=== PATIENT | female | born 1975 | race Caucasian/White ===

== ENCOUNTER 2019-12-24 14:56 | Outpatient (CLI) | payer OTHER, SELFPAY ==
--- NOTE | ~2019-12-24 | MR_ITS ---
EXAMINATION: MR cervical spine wo/w con DATE: 12/24/2019 17:27 INDICATION: Syringomyelia and syringobulbia. TECHNIQUE: Magnetic resonance imaging (MRI) of the cervical spine was performed without and with 13 m L MultiHance intravenous contrast. Sequences included sagittal and axial T2-weighted FSE, sagittal ST IR FSE, and sagittal and axial T1-weighted FSE. Postcontrast sequences included sagittal and axial T1 -weighted FS FSE. COMPARISON: Cervical spine MRI 07/14/2012 FINDINGS: There is kyphosis of cervical spine. Vertebral body heights are normal. There is moderately decreased disc height at C3-C4, C5-C6 C6-C7, and C7-T1. The spinal cord signal intensity is normal. The following disc levels are specifically discussed: C2-C3: There is a central protrusion. There is mild left uncovertebral joint osteoarthritis. There is severe left facet joint osteoarthritis. There is mild left neural foraminal stenosis. There is no ce ntral canal stenosis. C3-C4: The disc is bulging. There is severe bilateral uncovertebral joint osteoarthritis. There is mo derate and severe left facet joint osteoarthritis. There is mild bilateral neural foraminal stenosis. There is mild central canal stenosis. C4-C5: The disc does not extend beyond the endplate margin. There is mild left uncovertebral joint os teoarthritis. There is mild left facet joint osteoarthritis. There is mild left neural foraminal sten osis. There is no central canal stenosis. C5-C6: The disc is bulging. There is moderate right and severe left uncovertebral joint osteoarthriti s. There is mild bilateral facet joint osteoarthritis. There is mild left neural foraminal stenosis. There is mild central canal stenosis. C6-C7: The disc is bulging. There is moderate bilateral uncovertebral joint osteoarthritis. There is no facet joint osteoarthritis. There is mild right neural foraminal stenosis. There is mild central c anal stenosis. C7-T1: The disc is bulging. There is severe bilateral uncovertebral joint osteoarthritis. There is mi ld bilateral facet joint osteoarthritis. There is mild bilateral neural foraminal stenosis. There is mild central canal stenosis. IMPRESSION: 1. No syringomyelia. 2. Moderate cervical spondylosis. Reviewed, dictated and finalized at location A. IOPE PLAYER
--- NOTE | ~2019-12-24 | MR_ITS ---
EXAMINATION: MR thoracic spine wo/w con EXAM DATE: 12/24/2019 17:27 INDICATION: Single hydromyelia. TECHNIQUE: Multi-sequential, multiplanar MR images of the thoracic spine were obtained without contra st. Sagittal T1, T2, T2 fat saturation, axial T2 weighted images reviewed. Axial T1 weighted sequenc e. Patient was then injected with 13 mL Multihance intravenous contrast and reimaged. Postcontrast axial and sagittal T1-weighted fat saturation sequences were obtained. Comparison is made to prior ex amination from 03/01/2014, 07/14/2012. FINDINGS: The mid thoracic spinal cord central canal is again perceptible, measuring up to about 1.4 mm (was about 1.0 mm on previous examination. This is minimally dilated, but there is no other cord s ignal abnormality, or abnormal enhancement to suggest any underlying mass. The thoracic spinal canal and neural foramen widely patent. The vertebral bodies are aligned in the AP dimension. Vertebral bod y and disc heights are well-maintained. Mild thoracic facet arthropathy. Paraspinal soft tissue is un remarkable. There are no areas of abnormal enhancement on the post contrast images. IMPRESSION: 1. Minimal mid thoracic syringohydromyelia, slight increase compared to 2013, appears similar to exam from 2011. 2. Mild facet arthropathy. Reviewed, dictated and finalized at location A. RAM DIRECTOR/TRAFFIC DIRECTOR IMPRESSION: 1. Minimal mid thoracic syringohydromyelia, slight increase compared to 2013, a ppears similar to exam from 2011. 2. Mild facet arthropathy.
[2019-12-24 16:13] LABS: Blood Urea Nitrogen 7 mg/dL (8-26); Estimated Glomerular Filt Rate > 60
== END 2019-12-24 14:57 | disposition home or self-care (01) ==
LOC: ANHIMG 15:03
PROVIDERS: PCP Physician Assistant; Visit Provider Psychiatry & Neurology Neurology
DX: G95.0 Syringomyelia and syringobulbia (principal); M47.892 Other spondylosis, cervical region
CPT/HCPCS: 72156; 72157; A9577

== ENCOUNTER 2020-11-17 14:57 | Outpatient (CLI) | payer OTHER, SELFPAY ==
--- NOTE | ~2020-11-17 | MR_ITS ---
EXAMINATION: MR cervical spine wo con DATE: 11/17/2020 16:15 INDICATION: Paresthesias of skin. TECHNIQUE: Magnetic resonance imaging (MRI) of the cervical spine was performed without intravenous c ontrast. Sequences included sagittal T2-weighted FSE, sagittal STIR FSE, sagittal T1-weighted FSE, ax ial MERGE, and axial T2-weighted FSE. COMPARISON: None FINDINGS: There is kyphosis of cervical spine. Vertebral body heights are normal. There is moderately decreased disc height at C3-C4, C5-C6, C6-C7, and C7-T1. The spinal cord signal intensity is normal. The following disc levels are specifically discussed: C2-C3: There is a left central protrusion. There is mild right and severe left uncovertebral joint os teoarthritis. There is severe left facet joint osteoarthritis. There is mild left neural foraminal st enosis. There is no central canal stenosis. C3-C4: The disc is bulging. There is severe bilateral uncovertebral joint osteoarthritis. There is mo derate right and severe left facet joint osteoarthritis. There is mild bilateral neural foraminal andriy nosis. There is mild central canal stenosis. C4-C5: The disc does not extend beyond the endplate margin. There is no uncovertebral joint osteoarth ritis. There is mild bilateral facet joint osteoarthritis. There is no neural foraminal stenosis. The re is no central canal stenosis. C5-C6: The disc does not extend beyond the endplate margin. There is moderate and severe left uncover tebral joint osteoarthritis. There is no facet joint osteoarthritis. There is mild left neural forami nal stenosis. There is mild central canal stenosis. C6-C7: The disc is bulging. There is moderate bilateral uncovertebral joint osteoarthritis. There is no facet joint osteoarthritis. There is mild right neural foraminal stenosis. There is mild central c anal stenosis. C7-T1: The disc is bulging. There is mild right and severe left uncovertebral joint osteoarthritis. T here is no facet joint osteoarthritis. There is mild bilateral neural foraminal stenosis. There is mi ld central canal stenosis. IMPRESSION: 1. Moderate cervical spondylosis, stable from 12/24/2019. Reviewed, dictated and finalized at location A. L RECORDS MANAGER
--- NOTE | ~2020-11-17 | MR_ITS ---
EXAMINATION: MR thoracic spine wo con DATE: 11/17/2020 16:16 INDICATION: Paresthesias of skin. Syringomyelia and single mobile. TECHNIQUE: Magnetic resonance imaging (MRI) of the thoracic spine was performed without intravenous c ontrast. Sagittal localizer T1-weighted FSE of the cervicothoracic spine was obtained. Thoracic spine sequences included sagittal T2-weighted FSE, sagittal T1-weighted SE, Sagittal T2-weighted FS FSE, a nd axial T2-weighted FSE. COMPARISON: 12/24/2019 FINDINGS: 15 degree levoscoliosis measured between T2 and T9.Sagittal alignment is normal.Vertebral body height s are normal. Likely physiologic minimal anterior wedging at T12 with Schmorl's nodes along the super ior and inferior endplates. Normal marrow signal.Mild disc height loss throughout the majority of the thoracic spine. There are small disc protrusions at T3-T4,T5-T6 and T9-T10 which does not significan tly narrow the central canal. Multilevel mild to moderate bilateral thoracic facet osteoarthritis wit h no significant neural foraminal stenosis. Again seen a syringohydromyelia in the midthoracic cord w ith mild dilation of the central canal which is minimally increased since the prior study , previous ly 1.4 mm, currently up to 1.5 mm at T8-T9. IMPRESSION: 1. Mild progression in mild thoracic syringohydromyelia which now extends further craniocaudally and with slight increase in degree of dilation now measuring 1.5 mm. 2. 15 degree lumbar levoscoliosis with mild spondylosis. Reviewed, dictated and finalized at location A. PINCHER IMPRESSION: 1. Mild progression in mild thoracic syringohydromyelia which now extends furth er craniocaudally and with slight increase in degree of dilation now measuring 1.5 mm. 2. 15 degree lumbar levoscoliosis with mild spondylosis.
== END 2020-11-17 14:58 | disposition home or self-care (01) ==
LOC: ANHIMG 15:00
PROVIDERS: PCP Physician Assistant; Visit Provider Psychiatry & Neurology Neurology
DX: R20.2 Paresthesia of skin (principal); M47.896 Other spondylosis, lumbar region; M47.892 Other spondylosis, cervical region
CPT/HCPCS: 72141; 72146

== ENCOUNTER 2021-02-02 09:54 | Outpatient (CLI) | payer MEDICAID, SELFPAY ==
--- NOTE | 2021-02-02 11:30 | NEURO_ITS ---
Impression: # Complains of left hand numbness; known to have syringomyelia. # Left moderate Carpal Tunnel Syndrome. # No ulnar neuropathy. # Normal needle/EMG exam. # Clinical correlation recommended. Nerve Conduction Studies Anti Sensory Summary Table Stim Site NR Peak (ms) P-T Amp (?V) Site1 Site2 Delta-P (ms) Dist (cm) Sean (m/s) Left Median Anti Sensory (2-3nd Digit) NO RESPONSE Wrist NR Wrist 2-3nd Digit 14.0 Wrist NR Wrist 2-3nd Digit 14.0 Right Median Anti Sensory (2-3nd Digit) Wrist 3.1 39.0 Wrist 2-3nd Digit 3.1 14.0 45 Wrist 3.1 54.4 Wrist 2-3nd Digit 3.1 14.0 45 Left Radial Anti Sensory (Base 1st Digit) Wrist 1.7 43.6 Wrist Base 1st Digit 1.7 0.0 Right Radial Anti Sensory (Base 1st Digit) Wrist 2.1 28.1 Wrist Base 1st Digit 2.1 0.0 Left Ulnar Anti Sensory (5th Digit) Wrist 2.2 47.0 Wrist 5th Digit 2.2 14.0 64 Right Ulnar Anti Sensory (5th Digit) Wrist 2.1 41.5 Wrist 5th Digit 2.1 14.0 67 Motor Summary Table Stim Site NR Onset (ms) O-P Amp (mV) Site1 Site2 Delta-0 (ms) Dist (cm) Sean (m/s) Left Median Motor (Abd Poll Brev) Wrist 5.7 4.7 Elbow Wrist 4.8 28.0 58 Elbow 10.5 5.5 Right Median Motor (Abd Poll Brev) Wrist 3.0 4.0 Elbow Wrist 4.2 25.0 60 Elbow 7.2 6.0 Left Ulnar Motor (Abd Dig Minimi) Wrist 2.4 6.5 A Elbow Wrist 4.6 29.0 63 A Elbow 7.0 5.4 Right Ulnar Motor (Abd Dig Minimi) Wrist 2.4 6.5 A Elbow Wrist 4.4 27.0 61 A Elbow 6.8 5.8 F Wave Studies NR F-Lat (ms) L-R F-Lat (ms) Left Median (Mrkrs) (Abd Poll Brev) 25.56 0.88 Right Median (Mrkrs) (Abd Poll Brev) 24.68 0.88 Left Ulnar (Mrkrs) (Abd Dig Min) 24.69 0.63 Right Ulnar (Mrkrs) (Abd Dig Min) 24.06 0.63 EMG Side Muscle Nerve Root Ins Act Fibs Amp Dur Recrt Comment Right 1stDorInt Ulnar C8-T1 Nml Nml Nml Nml Nml Right Ext Indicis Radial (Post Int) C7-8 Nml Nml Nml Nml Nml Right Ext Digitorum Radial (Post Int) C7-8 Nml Nml Nml Nml Nml Right BrachioRad Radial C5-6 Nml Nml Nml Nml Nml Right PronatorTeres Median C6-7 Nml Nml Nml Nml Nml Right Abd Poll Brev Median C8-T1 Nml Nml Nml Nml Nml Left 1stDorInt Ulnar C8-T1 Nml Nml Nml Nml Nml Left Ext Indicis Radial (Post Int) C7-8 Nml Nml Nml Nml Nml Left Ext Digitorum Radial (Post Int) C7-8 Nml Nml Nml Nml Nml Left BrachioRad Radial C5-6 Nml Nml Nml Nml Nml Left PronatorTeres Median C6-7 Nml Nml Nml Nml Nml Left Abd Poll Brev Median C8-T1 Nml Nml Nml Nml Nml MTDD
== END 2021-02-02 09:55 | disposition home or self-care (01) ==
PROVIDERS: PCP Physician Assistant; Visit Provider Psychiatry & Neurology Neurology
DX: G56.02 Carpal tunnel syndrome, left upper limb (principal); R20.2 Paresthesia of skin
CPT/HCPCS: 95886; 95911

== ENCOUNTER 2022-09-14 17:53 | Emergency (ER) | payer OTHER, SELFPAY ==
--- NOTE | 2022-09-14 18:03 | ED.DIZZY ---
HPI - Dizziness General Chief Complaint: Dizziness Stated Complaint: dizziness Time Seen by Provider: 09/14/22 18:40 Source: patient Mode of arrival: ambulatory Limitations: no limitations History of Present Illness HPI Narrative: Ms. Sanchez is a 46-year-old female patient presenting to clinic today with complaints of dizziness, left ear pain, and wheezing. She reports she does have a history of asthma. She denies any fever or chills. She has a nonproductive cough currently. States that she has some mild shortness of breath and some left-sided neck pain over the eustachian tube. Related Data Home Medications Medication Instructions Recorded Confirmed albuterol sulfate 90 mcg/actuation inhalation 09/14/22 aerosol inhaler baclofen 10 mg tablet mg 09/14/22 cetirizine 10 mg tablet mg 09/14/22 cholecalciferol (vitamin D3) 50 09/14/22 mcg (2,000 unit) capsule ezetimibe 10 mg tablet mg 09/14/22 fluoxetine 20 mg capsule mg 09/14/22 gabapentin 600 mg tablet mg 09/14/22 hydrocodone 10 mg-acetaminophen tablet 09/14/22 325 mg tablet hydroxyzine pamoate 25 mg capsule mg 09/14/22 norethindrone 1 mg-ethinyl tablet 09/14/22 estradiol 20 mcg (24)-iron 75 mg (4) tablet (Blisovi 24 Fe) omeprazole 20 mg capsule,delayed mg 09/14/22 release trazodone 50 mg tablet mg 09/14/22 Allergies Allergy/AdvReac Type Severity Reaction Status Date / Time No Known Allergies Allergy Verified 09/14/22 18:39 Review of Systems Review of Systems: Pertinent positives per HPI. Patient denies any fever, chills, rash, headache, visual changes, dizziness, cough, runny nose, sore throat, shortness of breath, chest pain, palpitations, nausea, vomiting, diarrhea, constipation, abdominal pain, or any urinary issues. PMFSH Comments At the time of my signature, I reviewed and agree with the nursing past medical, surgical, social, and family history. There is no relevant family history pertinent to the patient complaint. Exam Narrative: General: Well-developed, well nourished, in no apparent distress Head: Normocephalic, atraumatic Eyes: Pupils equally round and reactive to light bilaterally, EOM intact, sclera and conjunctive clear, no discharge, lids normal Ears: Right TMs intact and clear, left TM intact, bulging, and red, tenderness to palpation over the the left eustachian tube,ear canals clear, no drainage, grossly hearing normal. Nose: Nares patent, clear nasal discharge, mild inflammation, no sinus tenderness. Mouth: Oropharynx without lesions or masses, good dentition, MMM. Neck: Supple, trachea midline, no enlargement of anterior or posterior cervical nodes, no thyroid masses or goiter palpable. Cardio: Regular rate and rhythm, s1 and s2 normal, no murmur appreciated. Resp: faint expiratory wheezing throughout lung cash, no rhonchi, rales, or rubs Course Course Emergency Course: Portions of this record may have been created with voice recognition software. Level of Care: Express Care Visit Vital Signs Vital signs: Vital Signs Temperature 37.2 C 09/14/22 18:38 Pulse Rate 70 09/14/22 18:38 Respiratory Rate 16 09/14/22 18:38 Blood Pressure 147/91 H 09/14/22 18:38 Pulse Oximetry 99 09/14/22 18:38 Oxygen Delivery Room Air 09/14/22 18:38 Temperature 37.2 C 09/14/22 18:38 Pulse Rate 70 09/14/22 18:38 Respiratory Rate 16 09/14/22 18:38 Blood Pressure 147/91 H 09/14/22 18:38 Pulse Oximetry 99 09/14/22 18:38 Oxygen Delivery Room Air 09/14/22 18:38 Vital signs reviewed MDM - Dizziness MDM Narrative Medical decision making narrative: At the time of visit patient is resting comfortably on the exam table. I suspect that the patient has left otitis media with bronchitis. Will give prescription for some prednisone and amoxicillin. Supportive measures were discussed with the patient she voiced understanding of discharge instructions and agrees to treatment plan.
[2022-09-14 18:38] VITALS: BP 147/91; PULSE 70; RESP 16; TEMP 37.2; O2SAT 99
[2022-09-14 18:54] VITALS: BP 147/91; PULSE 70; RESP 16; TEMP 37.2; O2SAT 99
== END 2022-09-14 19:02 | disposition home or self-care (01) ==
PROVIDERS: Emergency Provider Nurse Practitioner Family
DX: H66.92 Otitis media, unspecified, left ear (principal); J40 Bronchitis, not specified as acute or chronic; E78.00 Pure hypercholesterolemia, unspecified; J45.909 Unspecified asthma, uncomplicated; K21.9 Gastro-esophageal reflux disease without esophagitis; G95.0 Syringomyelia and syringobulbia
CPT/HCPCS: 99203; G0463

== ENCOUNTER 2023-04-06 18:53 | Emergency (ER) | payer OTHER, SELFPAY ==
[2023-04-06 19:03] VITALS: BP 144/89; PULSE 68; RESP 16; TEMP 37.4; O2SAT 99
--- NOTE | 2023-04-06 19:58 | ED.EAR ---
HPI - Ear Problem General Chief complaint: Ear Stated complaint: Ear Irritation Time Seen by Provider: 04/06/23 19:58 Source: patient and RN notes reviewed Mode of arrival: ambulatory Limitations: no limitations History of Present Illness HPI Narrative: 47-year-old female presents concern for left ear pain. She reports she has had an ear infection in the past. She reports she has had a headache recently and she has allergy symptoms. She denies fever, drainage from the ears MD Complaint: ear pain Related Data Home Medications Medication Instructions Recorded Confirmed albuterol sulfate 90 mcg/actuation 90 mcg inhalation Q4-5H PRN sob 09/14/22 04/06/23 aerosol inhaler baclofen 10 mg tablet 10 mg PO DAILY 09/14/22 04/06/23 cetirizine 10 mg tablet 10 mg PO DAILY 09/14/22 04/06/23 cholecalciferol (vitamin D3) 50 50 mcg PO DAILY 09/14/22 04/06/23 mcg (2,000 unit) capsule ezetimibe 10 mg tablet 10 mg PO DAILY 09/14/22 04/06/23 fluoxetine 20 mg capsule 20 mg PO DAILY 09/14/22 04/06/23 gabapentin 600 mg tablet 600 mg PO DAILY 09/14/22 04/06/23 hydrocodone 10 mg-acetaminophen 1 tablet PO DAILY PRN Pain 09/14/22 04/06/23 325 mg tablet hydroxyzine pamoate 25 mg capsule 25 mg PO DAILY 09/14/22 04/06/23 norethindrone 1 mg-ethinyl 1 tablet PO DAILY 09/14/22 04/06/23 estradiol 20 mcg (24)-iron 75 mg (4) tablet (Blisovi 24 Fe) omeprazole 20 mg capsule,delayed 20 mg PO DAILY 09/14/22 04/06/23 release trazodone 50 mg tablet 50 mg PO DAILY 09/14/22 04/06/23 Allergies Allergy/AdvReac Type Severity Reaction Status Date / Time No Known Allergies Allergy Verified 04/06/23 19:00 Review of Systems Review of Systems: CONSTITUTIONAL: Denies malaise, chills, sweats, or fever. EYES: Denies visual changes, redness, or discharge. ENT: Reports rhinorrhea, congestion denies sinus pain, and sore throat. Reports left ear pain CARDIOVASCULAR: Denies chest pain, palpitations, or edema. RESPIRATORY: Denies cough. Denies dyspnea. GASTROINTESTINAL: Denies abdominal pain, nausea, vomiting, diarrhea SKIN: Denies rash or itching. MUSCULOSKELETAL: Denies myalgia. NEUROLOGIC: Reports headache. All systems reviewed & are unremarkable except as noted in HPI and below PMFSH Comments At time of signature, agree with nursing past medical, surgical, social and family history. There is no relevant family history pertinent to the presenting complaint Exam Narrative: GENERAL: Well-appearing, well-nourished, and in no acute distress. HEAD: Normocephalic EYES: PERRLA, conjunctivae clear ENT: Nares clear, clear discharge. Mucous membranes moist. Right tM pearly javed with dull light reflex left TM erythematous; no tragal tenderness, excess cerumen in the left EAC. Oropharynx not erythematous without lesions. Tonsils not enlarged and without exudate, no drooling, no hoarseness, no trismus, uvula midline. NECK: Supple. No lymphadenopathy CHEST: Clear to auscultation, breath sounds equal. No wheezing, rhonchi, rales, or stridor. No respiratory distress, speaks in full sentences. HEART: Regular rate and rhythm. No murmur heard. SKIN: Warm, dry, no rash. NEURO: Alert and oriented x3. PSYCH: Normal mood and affect Course Course Emergency Course: Advised patient to soften her ear wax, to see her doctor or return for cleaning out ear wax if it is not resolved Patient is aware of diagnosis, understands and agrees to treatment plan. Anticipatory guidance given. Patient agrees to follow-up as directed and is aware of reasons to seek care at the emergency department. Portions of this record may have been created with voice recognition software Level of Care: Express Care Visit Vital Signs Vital signs: Vital Signs Temperature 99.3 F 04/06/23 19:03 Pulse Rate 68 04/06/23 19:03 Respiratory Rate 16 04/06/23 19:03 Blood Pressure 144/89 H 04/06/23 19:03 Pulse Oximetry 99 04/06/23 19:03 Oxygen Delivery Room Air 04/06/23 19:03
== END 2023-04-06 20:11 | disposition home or self-care (01) ==
PROVIDERS: Emergency Provider Nurse Practitioner; PCP Internal Medicine Gastroenterology
DX: H66.92 Otitis media, unspecified, left ear (principal); E78.00 Pure hypercholesterolemia, unspecified; J45.909 Unspecified asthma, uncomplicated; K21.9 Gastro-esophageal reflux disease without esophagitis; G95.0 Syringomyelia and syringobulbia; F41.9 Anxiety disorder, unspecified; F32.A Depression, unspecified
CPT/HCPCS: 99213; G0463

== ENCOUNTER 2023-04-17 18:42 | Emergency (ER) | payer OTHER, SELFPAY ==
[2023-04-17 18:48] VITALS: BP 134/85; PULSE 75; RESP 18; TEMP 37.4; O2SAT 99
--- NOTE | 2023-04-17 18:53 | ED.EAR ---
HPI - Ear Problem General Chief complaint: Ear Stated complaint: Left Ear Time Seen by Provider: 04/17/23 19:11 Source: patient and RN notes reviewed Mode of arrival: ambulatory Limitations: no limitations History of Present Illness HPI Narrative: 47-year-old female presents with concern for fullness in her left ear. She was treated for an ear infection 2 weeks ago and at that time had a buildup of wax, she said since then she has been using peroxide. She reports she still has fullness in her ear. MD Complaint: other (Ear fullness) Related Data Home Medications Medication Instructions Recorded Confirmed albuterol sulfate 90 mcg/actuation 90 mcg inhalation Q4-5H PRN sob 09/14/22 04/17/23 aerosol inhaler baclofen 10 mg tablet 10 mg PO DAILY 09/14/22 04/17/23 cholecalciferol (vitamin D3) 50 50 mcg PO DAILY 09/14/22 04/17/23 mcg (2,000 unit) capsule ezetimibe 10 mg tablet 10 mg PO DAILY 09/14/22 04/17/23 fluoxetine 20 mg capsule 20 mg PO DAILY 09/14/22 04/17/23 gabapentin 600 mg tablet 600 mg PO DAILY 09/14/22 04/17/23 hydrocodone 10 mg-acetaminophen 1 tablet PO DAILY PRN Pain 09/14/22 04/17/23 325 mg tablet hydroxyzine pamoate 25 mg capsule 25 mg PO DAILY 09/14/22 04/17/23 norethindrone 1 mg-ethinyl 1 tablet PO DAILY 09/14/22 04/17/23 estradiol 20 mcg (24)-iron 75 mg (4) tablet (Blisovi 24 Fe) omeprazole 20 mg capsule,delayed 20 mg PO DAILY 09/14/22 04/17/23 release trazodone 50 mg tablet 50 mg PO DAILY 09/14/22 04/17/23 Allergies Allergy/AdvReac Type Severity Reaction Status Date / Time No Known Allergies Allergy Verified 04/06/23 19:00 Review of Systems Review of Systems: CONSTITUTIONAL: Denies malaise, chills, sweats, or fever. EYES: Denies visual changes, redness, or discharge. ENT: Reports chronic rhinorrhea, congestion. Denies sinus pain, and sore throat. Reports left ear fullness CARDIOVASCULAR: Denies chest pain, palpitations, or edema. RESPIRATORY: Denies cough. Denies dyspnea. GASTROINTESTINAL: Denies abdominal pain, nausea, vomiting, diarrhea SKIN: Denies rash or itching. MUSCULOSKELETAL: Denies myalgia. NEUROLOGIC: Denies headache. All systems reviewed & are unremarkable except as noted in HPI and below PMFSH Comments At time of signature, agree with nursing past medical, surgical, social and family history. There is no relevant family history pertinent to the presenting complaint Exam Narrative: GENERAL: Well-appearing, well-nourished, and in no acute distress. HEAD: Normocephalic EYES: PERRLA, conjunctivae clear ENT: Nares clear, turbinates edematous, clear discharge. Mucous membranes moist. Right tM pearly javed with sharp light reflex, left TM full with dull light reflex without erythema or acute infection; no tragal tenderness. Oropharynx not erythematous without lesions. Tonsils not enlarged and without exudate, no drooling, no hoarseness, no trismus, uvula midline. NECK: Supple. No lymphadenopathy CHEST: Clear to auscultation, breath sounds equal. No wheezing, rhonchi, rales, or stridor. No respiratory distress, speaks in full sentences. HEART: Regular rate and rhythm. No murmur heard. SKIN: Warm, dry, no rash. NEURO: Alert and oriented x3. PSYCH: Normal mood and affect Course Course Emergency Course: Patient is aware of diagnosis, understands and agrees to treatment plan. Anticipatory guidance given. Patient agrees to follow-up as directed and is aware of reasons to seek care at the emergency department. Portions of this record may have been created with voice recognition software Level of Care: Express Care Visit Vital Signs Vital signs: Vital Signs Temperature 99.3 F 04/17/23 18:48 Pulse Rate 75 04/17/23 18:48 Respiratory Rate 18 04/17/23 18:48 Blood Pressure 134/85 04/17/23 18:48 Pulse Oximetry 99 04/17/23 18:48 Oxygen Delivery Room Air 04/17/23 18:48 Temperature 99.3 F 04/17/23 18:48 Pulse Rate 75 04/17/23 18:48 Respir
== END 2023-04-17 19:25 | disposition home or self-care (01) ==
PROVIDERS: Emergency Provider Nurse Practitioner; PCP Internal Medicine Gastroenterology
DX: H73.892 Other specified disorders of tympanic membrane, left ear (principal); J30.2 Other seasonal allergic rhinitis; E78.00 Pure hypercholesterolemia, unspecified; J45.909 Unspecified asthma, uncomplicated; K21.9 Gastro-esophageal reflux disease without esophagitis; F41.9 Anxiety disorder, unspecified; F32.A Depression, unspecified; G95.0 Syringomyelia and syringobulbia
CPT/HCPCS: 99213; G0463

== ENCOUNTER 2023-06-17 17:01 | Emergency (ER) | payer OTHER, SELFPAY ==
--- NOTE | 2023-06-17 17:21 | ED.URI ---
HPI - URI/Sore Throat General Chief Complaint: Upper Respiratory Infection Stated Complaint: chest hurts Time Seen by Provider: 06/17/23 17:23 Source: patient and RN notes reviewed Mode of arrival: ambulatory Limitations: no limitations History of Present Illness HPI Narrative: 47-year-old female presents with concern for cough, chest congestion. Reports her cough is productive. Reports tightness in her upper chest. She reports history of asthma, she has been using her albuterol inhaler, she last used this morning. She also reports she is having sinus congestion ear pain. MD elicited complaint: cough and other Related Data Home Medications Medication Instructions Recorded Confirmed albuterol sulfate 90 mcg/actuation inhalation 06/17/23 aerosol inhaler baclofen 10 mg tablet mg 06/17/23 buspirone 7.5 mg tablet mg 06/17/23 cetirizine 10 mg tablet mg 06/17/23 cholecalciferol (vitamin D3) 50 06/17/23 mcg (2,000 unit) capsule fluoxetine 20 mg capsule mg 06/17/23 gabapentin 600 mg tablet mg 06/17/23 hydrocodone 10 mg-acetaminophen tablet 06/17/23 325 mg tablet norethindrone 1 mg-ethinyl tablet 06/17/23 estradiol 20 mcg (24)-iron 75 mg (4) tablet (Blisovi 24 Fe) omeprazole 20 mg capsule,delayed mg 06/17/23 release trazodone 50 mg tablet mg 06/17/23 Allergies Allergy/AdvReac Type Severity Reaction Status Date / Time No Known Allergies Allergy Unverified 06/17/23 17:11 Review of Systems Review of Systems: CONSTITUTIONAL: Denies malaise, chills, sweats, or fever. EYES: Denies visual changes, redness, or discharge. ENT: Reports rhinorrhea, congestion, sinus pain, otalgia CARDIOVASCULAR: Denies chest pain, palpitations, or edema. RESPIRATORY: Reports productive cough chest congestion. Denies dyspnea. GASTROINTESTINAL: Denies abdominal pain, nausea, vomiting, diarrhea SKIN: Denies rash or itching. MUSCULOSKELETAL: Denies myalgia. NEUROLOGIC: Denies headache. All systems reviewed & are unremarkable except as noted in HPI and below PMFSH Family History Family History (Updated 06/02/16 @ 23:21 by DOCTOR UNKNOWN) Mother Patient's mother is in good health Social History Social History Smoking status: Never smoker Alcohol intake: never Comments At time of signature, agree with nursing past medical, surgical, social and family history. There is no relevant family history pertinent to the presenting complaint Exam Narrative: GENERAL: Well-appearing, well-nourished, and in no acute distress. HEAD: Normocephalic EYES: PERRLA, conjunctivae clear ENT: Nares clear, turbinates edematous and erythematous, clear discharge. Mucous membranes moist. Right TM pearly javed with dull light reflex, left TM erythematous and bulging; no tragal tenderness. Oropharynx not erythematous without lesions. Tonsils not enlarged and without exudate, no drooling, no hoarseness, no trismus, uvula midline. NECK: Supple. No lymphadenopathy CHEST: Clear to auscultation, breath sounds equal. No wheezing, rhonchi, rales, or stridor. No respiratory distress, speaks in full sentences. HEART: Regular rate and rhythm. No murmur heard. SKIN: Warm, dry, no rash. NEURO: Alert and oriented x3. PSYCH: Normal mood and affect Course Course Emergency Course: Patient is aware of diagnosis, understands and agrees to treatment plan. Anticipatory guidance given. Patient agrees to follow-up as directed and is aware of reasons to seek care at the emergency department. Portions of this record may have been created with voice recognition software Level of Care: Express Care Visit Vital Signs Vital signs: Reviewed. MDM - URI/Sore Throat MDM Narrative Medical decision making narrative: Differential diagnosis considered: Hines virus, strep pharyngitis, allergic rhinitis, upper respiratory tract infection, sinusitis, rhinosinusitis, nasopharyngitis. viral pharyngitis, otitis media, otitis externa, pneumonia, bronch
== END 2023-06-17 17:37 | disposition home or self-care (01) ==
PROVIDERS: Emergency Provider Nurse Practitioner; PCP Family Medicine
DX: H66.92 Otitis media, unspecified, left ear (principal); J40 Bronchitis, not specified as acute or chronic; J45.909 Unspecified asthma, uncomplicated
CPT/HCPCS: 99213; G0463

== ENCOUNTER 2023-07-01 16:07 | Emergency (ER) | payer OTHER, SELFPAY ==
--- NOTE | ~2023-07-01 | XR_ITS ---
EXAMINATION: XR chest 2V DATE: 07/01/2023 16:53 INDICATION: Productive cough with wheezing TECHNIQUE: PA and lateral views of the chest were obtained. COMPARISON: Chest radiograph dated 01/26/2013 FINDINGS: The lungs remain clear with no focal airspace opacities, pulmonary edema, pleural effusion or pneumot horax. The cardiomediastinal silhouette is normal. Mild S-shaped scoliosis of the thoracic spine. IMPRESSION: 1. No acute cardiopulmonary disease. Reviewed, dictated and finalized at location A.
--- NOTE | 2023-07-01 16:23 | ED.EAR ---
HPI - Ear Problem General Chief complaint: Upper Respiratory Infection Stated complaint: left ear pain Time Seen by Provider: 07/01/23 16:24 Source: patient Mode of arrival: ambulatory Limitations: no limitations History of Present Illness HPI Narrative: 47-year-old female presented for complaint of left ear pain for over 2 weeks. States hearing sounds like she is in a tunnel. Denies ear drainage or tinnitus, headache, n/v/d/f/c. Patient also reports cough sinus congestion, and chest congestion for 2 weeks. Cough is productive of green sputum and has audible wheezing. Hx asthma, running out of albuterol inhaler, has not used nebulizer. Patient reported these symptoms on 06/17/23 and was treated with Augmentin and Medrol pack, stating she has had no improvement. Did not f/u with pcp stating it takes 3 weeks to get an appointment. MD Complaint: ear pain Related Data Home Medications Medication Instructions Recorded Confirmed albuterol sulfate 90 mcg/actuation 90 mcg inhalation Q4-5H PRN sob 09/14/22 07/01/23 aerosol inhaler baclofen 10 mg tablet 10 mg PO DAILY 09/14/22 07/01/23 cholecalciferol (vitamin D3) 50 50 mcg PO DAILY 09/14/22 07/01/23 mcg (2,000 unit) capsule ezetimibe 10 mg tablet 10 mg PO DAILY 09/14/22 07/01/23 fluoxetine 20 mg capsule 20 mg PO DAILY 09/14/22 07/01/23 gabapentin 600 mg tablet 600 mg PO DAILY 09/14/22 07/01/23 norethindrone 1 mg-ethinyl 1 tablet PO DAILY 09/14/22 07/01/23 estradiol 20 mcg (24)-iron 75 mg (4) tablet (Blisovi 24 Fe) omeprazole 20 mg capsule,delayed 20 mg PO DAILY 09/14/22 07/01/23 release trazodone 50 mg tablet 50 mg PO DAILY 09/14/22 07/01/23 buspirone 7.5 mg tablet 7.5 mg PO DAILY 06/17/23 07/01/23 cetirizine 10 mg tablet 10 mg PO DAILY 06/17/23 07/01/23 albuterol sulfate 1.25 mg/3 mL 1.25 mg inhalation Q4H 07/01/23 07/01/23 solution for nebulization Allergies Allergy/AdvReac Type Severity Reaction Status Date / Time No Known Allergies Allergy Verified 07/01/23 16:10 Review of Systems Review of Systems: CONSTITUTIONAL: Denies malaise, chills, or fever. EYES: Denies visual changes, redness, or discharge. ENT: Denies rhinorrhea, congestion, sinus pain, and sore throat. Reports ear pain CARDIOVASCULAR: Denies chest pain, palpitations, or edema. RESPIRATORY: reports cough denies dyspnea. GASTROINTESTINAL: Denies abdominal pain, nausea, vomiting, diarrhea SKIN: Denies rash or itching. MUSCULOSKELETAL: Denies myalgia. NEUROLOGIC: Denies headache. All systems reviewed & are unremarkable except as noted in HPI and below PMFSH Past Medical History Medical History (Updated 07/01/23 @ 17:26 by Cira Freed APRN) MDD (major depressive disorder), recurrent episode, moderate Mild intermittent asthma without complication Family History Family History Mother Patient's mother is in good health Social History Social History Smoking status: Never smoker Alcohol intake: never Comments At time of signature, agree with nursing past medical, surgical, social and family history. There is no relevant family history pertinent to the presenting complaint Exam Narrative: GENERAL: Well-appearing, well-nourished, and in no acute distress. HEAD: Normocephalic EYES: PERRLA, conjunctivae clear ENT: Nares clear. Mucous membranes moist. right TM pearly javed with normal light reflex, left TM erythematous and bulging with purulent effusion; no tragal or mastoid tenderness. Oropharynx not erythematous without lesions. NECK: Supple. No lymphadenopathy CHEST: audible expiratory wheezing, coarse lung sounds with faint wheezing throughout, No respiratory distress, speaks in full sentences. HEART: Regular rate and rhythm. No murmur heard. SKIN: Warm, dry, no rash. NEURO: Alert and oriented x3. PSYCH: Normal mood and affect Course Course Emerg
[2023-07-01 16:25] VITALS: BP 129/82; PULSE 79; RESP 16; TEMP 37.4; O2SAT 97
== END 2023-07-01 17:31 | disposition home or self-care (01) ==
PROVIDERS: Emergency Provider Nurse Practitioner Family
DX: H66.92 Otitis media, unspecified, left ear (principal); J40 Bronchitis, not specified as acute or chronic; B37.0 Candidal stomatitis; J45.909 Unspecified asthma, uncomplicated; F33.9 Major depressive disorder, recurrent, unspecified
CPT/HCPCS: 71046; 99213; G0463

== ENCOUNTER 2023-10-06 07:17 | Outpatient (CLI) | payer OTHER, SELFPAY ==
--- NOTE | ~2023-10-06 | MR_ITS ---
MRI of the thoracic spine Clinical History: Syringomyelia Technique: Axial T2-weighted and gradient images, and sagittal T1-weighted, T2-weighted, and STIR kamran ges were acquired. Following intravenous administration of 12 cc MultiHance gadolinium, T1-weighted f at-sat imaging was performed in the axial and sagittal planes. COMPARISON: 11/17/2020 Findings: There is no fracture or subluxation of the thoracic spine. Vertebral bodies maintain normal height. No bone marrow signal abnormality seen. There is no significant disc bulge or herniation at any thoracic level. No spinal canal stenosis or c ord compression. No epidural mass or collection seen. There is minimal prominence of the central canal the spinal cord from T8 to T10 levels, most prominen t at the T8-T9 region. No other abnormal signal seen in the spinal cord. No abnormal postcontrast enh ancement identified. Paravertebral soft tissues are unremarkable. Impression: Mild syrinx of the the thoracic spinal cord from the T8-T10 levels, as detailed above, essentially un changed from prior exam. Reviewed, dictated and finalized at location M. S READER Impression: Mild syrinx of the the thoracic spinal cord from the T8-T10 levels, as detailed above, essentially unchanged from prior exam.
== END 2023-10-06 07:18 | disposition home or self-care (01) ==
LOC: ANHIMG 07:21
PROVIDERS: PCP Internal Medicine Gastroenterology; Visit Provider Internal Medicine Gastroenterology
DX: G95.0 Syringomyelia and syringobulbia (principal)
CPT/HCPCS: 72157; A9577

== ENCOUNTER 2023-11-01 13:16 | Emergency (ER) | payer OTHER, SELFPAY ==
[2023-11-01 13:24] VITALS: BP 119/79; PULSE 85; RESP 20; TEMP 36.8; O2SAT 97
--- NOTE | 2023-11-01 13:24 | ED.GENADULT ---
HPI - General Adult General Chief complaint: Asthma Stated complaint: Asthma/SOB Time Seen by Provider: 11/01/23 13:41 Source: patient, RN notes reviewed and old records reviewed Mode of arrival: ambulatory Limitations: no limitations History of Present Illness HPI narrative: 48-year-old female presents to the [facility] with complaints of coughing, shortness of breath and asthma exacerbation. States that she has been using her inhaler with no relief. States that she when visited her son on the 28 of October in [facility] and he has 2 cats and 2 dogs which she is allergic to. States that she has been taking her Zyrtec Denies chest pain. Related Data Home Medications Medication Instructions Recorded Confirmed baclofen 10 mg tablet 10 mg PO DAILY 09/14/22 11/01/23 cholecalciferol (vitamin D3) 50 50 mcg PO DAILY 09/14/22 11/01/23 mcg (2,000 unit) capsule ezetimibe 10 mg tablet 10 mg PO DAILY 09/14/22 11/01/23 fluoxetine 20 mg capsule 20 mg PO DAILY 09/14/22 11/01/23 gabapentin 600 mg tablet 600 mg PO DAILY 09/14/22 11/01/23 norethindrone 1 mg-ethinyl 1 tablet PO DAILY 09/14/22 11/01/23 estradiol 20 mcg (24)-iron 75 mg (4) tablet (Blisovi 24 Fe) omeprazole 20 mg capsule,delayed 20 mg PO DAILY 09/14/22 11/01/23 release trazodone 50 mg tablet 50 mg PO DAILY 09/14/22 11/01/23 buspirone 7.5 mg tablet 7.5 mg PO DAILY 06/17/23 11/01/23 cetirizine 10 mg tablet 10 mg PO DAILY 06/17/23 11/01/23 Allergies Allergy/AdvReac Type Severity Reaction Status Date / Time No Known Allergies Allergy Verified 11/01/23 13:28 Review of Systems Review of Systems: All systems reviewed & are unremarkable except as noted in HPI and below Constitutional: Constitutional: Reports no additional constitutional complaints Eyes: Eyes: Reports no additional eye complaints ENT: Reports system reviewed and no additional complaints, except as documented Cardiovascular: Cardiovascular: Reports no additional cardiovascular complaints, Denies chest pain and Denies dyspnea Respiratory: Respiratory: Reports as per HPI, Denies chest congestion, Reports cough, Reports dyspnea and Reports wheezing Gastrointestinal: Gastrointestinal: Reports no additional gastrointestinal complaints, Denies abdominal pain, Denies nausea and Denies vomiting Musculoskeletal: Musculoskeletal: Reports no additional musculoskeletal complaints Integumentary/Breasts: Skin/Breast: Reports system reviewed and no additional complaints, except as docu Neurologic: Reports system reviewed and no additional complaints, except as documented Psychiatric: Psychiatric: Reports no additional psychiatric complaints Allergic/Immunologic: Allergic/Immunologic: Reports no additional allergic/immunologic complaints PMFSH Past Medical History Medical History MDD (major depressive disorder), recurrent episode, moderate Mild intermittent asthma without complication Family History Family History Mother Patient's mother is in good health Social History Social History Smoking status: Never smoker Alcohol intake: never Comments At the time of my signature, I reviewed and agree with the nursing past medical, surgical, social, and family history. There is no relevant family history pertinent to the patient complaint. Exam Const: General: cooperative, healthy appearing, comfortable, no acute distress, well developed, alert and well nourished Nutritional Appearance: well nourished Orientation/consciousness: patient oriented x3 Limitations: no limitations HENMT: Head: normal to inspection Ears: hearing grossly normal bilaterally, external ears normal, TM's normal bilaterally, EAC's normal, mastoids normal and no periauricular adenopathy Face/Nose/Sinus: Normal external nose present, Normal nares present, Normal nasal muc
[2023-11-01] MEDS: ALBUTEROL SULFATE NEB 2.5 MG/3 ML INH INHALATION (13:44)
[2023-11-01] MEDS: IPRATROPIUM BR 0.02% INH SOLN 0.5 MG/2.5 ML VIAL INHALATION (13:45)
== END 2023-11-01 15:00 | disposition home or self-care (01) ==
PROVIDERS: Emergency Provider Nurse Practitioner; PCP Internal Medicine Gastroenterology
DX: J45.901 Unspecified asthma with (acute) exacerbation (principal); Z79.899 Other long term (current) drug therapy
CPT/HCPCS: 94640; 99213; G0463

== ENCOUNTER 2024-01-04 18:54 | Emergency (ER) | payer OTHER, SELFPAY ==
--- NOTE | 2024-01-04 18:57 | ED.FEMALEGU ---
HPI - Female Genitourinary General Chief complaint: Urogenital-Female Stated complaint: UTI Time Seen by Provider: 01/04/24 18:57 Source: patient Mode of arrival: ambulatory Limitations: no limitations History of Present Illness HPI Narrative: Patient is a 48-year-old female that presents with 3 days pressure, urethral itching urgency, frequency and burning with urination. Denies any low back pain, fever, chills, nausea, vomiting, diarrhea. MD elicited complaint: dysuria Related Data Home Medications Medication Instructions Recorded Confirmed baclofen 10 mg tablet 10 mg PO DAILY 09/14/22 01/04/24 cholecalciferol (vitamin D3) 50 50 mcg PO DAILY 09/14/22 01/04/24 mcg (2,000 unit) capsule ezetimibe 10 mg tablet 10 mg PO DAILY 09/14/22 01/04/24 fluoxetine 20 mg capsule 20 mg PO DAILY 09/14/22 01/04/24 gabapentin 600 mg tablet 600 mg PO DAILY 09/14/22 01/04/24 norethindrone 1 mg-ethinyl 1 tablet PO DAILY 09/14/22 01/04/24 estradiol 20 mcg (24)-iron 75 mg (4) tablet (Blisovi 24 Fe) omeprazole 20 mg capsule,delayed 20 mg PO DAILY 09/14/22 01/04/24 release trazodone 50 mg tablet 50 mg PO DAILY 09/14/22 01/04/24 buspirone 7.5 mg tablet 7.5 mg PO DAILY 06/17/23 01/04/24 cetirizine 10 mg tablet 10 mg PO DAILY 06/17/23 01/04/24 Allergies Allergy/AdvReac Type Severity Reaction Status Date / Time No Known Allergies Allergy Verified 01/04/24 18:57 Review of Systems Review of Systems: All systems reviewed & are unremarkable except as noted in HPI and below Constitutional: Constitutional: Denies chills, Denies fever(s), Denies headache(s), Denies malaise and Denies weakness Eyes: Eyes: Denies change in vision, Denies eye discharge and Denies irritation ENT: Denies otalgia, Denies headache(s), Denies nasal congestion, Denies nasal discharge, Denies sinus pain and Denies sore throat Cardiovascular: Cardiovascular: Denies chest pain, Denies edema, Denies palpitations and Denies dyspnea Respiratory: Respiratory: Denies cough and Denies dyspnea Gastrointestinal: Gastrointestinal: Denies abdominal pain, Denies diarrhea, Denies nausea and Denies vomiting Genitourinary: Genitourinary: Denies hematuria, Reports nocturia, Reports dysuria, Denies flank pain and Reports urinary urgency Musculoskeletal: Musculoskeletal: Denies back pain and Denies numbness Integumentary/Breasts: Skin/Breast: Denies pruritus and Denies rash Neurologic: Denies headache(s), Denies numbness and Denies weakness Psychiatric: Psychiatric: Reports no additional psychiatric complaints Endocrine: Endocrine: Denies palpitations PMFSH Past Medical History Medical History MDD (major depressive disorder), recurrent episode, moderate Mild intermittent asthma without complication Family History Family History Mother Patient's mother is in good health Social History Social History Smoking status: Never smoker Alcohol intake: never Comments At time of signature, agree with nursing past medical, surgical, social and family history. There is no relevant family history pertinent to the presenting complaint. Exam Const: General: cooperative, healthy appearing, comfortable, no acute distress and well nourished Nutritional Appearance: well nourished Orientation/consciousness: patient oriented x3 HENMT: Head: normocephalic and atraumatic Ears: external ears normal Face/Nose/Sinus: Normal external nose present, Normal nares present and normal facial exam Face and sinus: normal facial exam Eyes: General: appearance normal, both eyes and all related structures Pupils: Equal, round and reactive pupils present EOM: EOMs intact bilaterally Neck: Neck: normal visual inspection, full ROM and supple Chest: Chest palpation & inspection: normal inspection of the chest Resp: Effort & In
[2024-01-04 19:07] VITALS: BP 142/88; PULSE 70; RESP 16; TEMP 37.3; O2SAT 100
== END 2024-01-04 19:23 | disposition home or self-care (01) ==
PROVIDERS: Emergency Provider Nurse Practitioner Family; PCP Internal Medicine Gastroenterology
DX: R30.0 Dysuria (principal); F33.8 Other recurrent depressive disorders
CPT/HCPCS: 81003; 87086; 99213; G0463

== ENCOUNTER 2024-02-10 15:32 | Emergency (ER) | payer OTHER, SELFPAY ==
[2024-02-10 15:35] VITALS: BP 141/94; PULSE 100; RESP 18; TEMP 36.5; O2SAT 99
[2024-02-10] MEDS: methylPREDNISolone SOD SUCC 125 MG VIAL IV PUSH (15:56)
[2024-02-10 16:10] VITALS: PULSE 75; RESP 12
[2024-02-10] MEDS: ALBUTEROL SULFATE NEB 2.5 MG/3 ML INH 15 MG INHALATION (16:10)
[2024-02-10] MEDS: IPRATROPIUM BR 0.02% INH SOLN 0.5 MG/2.5 ML VIAL 1.5 MG INHALATION (16:10)
[2024-02-10 16:15] VITALS: BP 125/82; PULSE 80; RESP 14; O2SAT 97
[2024-02-10 16:45] VITALS: BP 119/83; PULSE 81; RESP 12; O2SAT 100
--- NOTE | 2024-02-10 17:11 | ED.ASTHMA ---
HPI - Asthma General Chief Complaint: Asthma Stated Complaint: asthma Time Seen by Provider: 02/10/24 15:39 History of Present Illness HPI Narrative: Patient is a 48-year-old female who presents ER with asthma exacerbation. Worsening over last 2 days. No improvement with home albuterol or nebulizer. No fevers chills or sweats. Denies productive cough. She returns food. Shortness of breath present at rest and with exertion. Audible wheezes noted. Related Data Home Medications Medication Instructions Recorded Confirmed baclofen 10 mg tablet 10 mg PO DAILY 09/14/22 01/04/24 cholecalciferol (vitamin D3) 50 50 mcg PO DAILY 09/14/22 01/04/24 mcg (2,000 unit) capsule ezetimibe 10 mg tablet 10 mg PO DAILY 09/14/22 01/04/24 fluoxetine 20 mg capsule 20 mg PO DAILY 09/14/22 01/04/24 gabapentin 600 mg tablet 600 mg PO DAILY 09/14/22 01/04/24 norethindrone 1 mg-ethinyl 1 tablet PO DAILY 09/14/22 01/04/24 estradiol 20 mcg (24)-iron 75 mg (4) tablet (Blisovi 24 Fe) omeprazole 20 mg capsule,delayed 20 mg PO DAILY 09/14/22 01/04/24 release trazodone 50 mg tablet 50 mg PO DAILY 09/14/22 01/04/24 buspirone 7.5 mg tablet 7.5 mg PO DAILY 06/17/23 01/04/24 cetirizine 10 mg tablet 10 mg PO DAILY 06/17/23 01/04/24 Allergies Allergy/AdvReac Type Severity Reaction Status Date / Time No Known Allergies Allergy Verified 02/10/24 15:47 Review of Systems Review of Systems: All systems reviewed & are unremarkable except as noted in HPI and below Constitutional: Constitutional: Reports no additional constitutional complaints ENT: Reports system reviewed and no additional complaints, except as documented Cardiovascular: Cardiovascular: Reports no additional cardiovascular complaints Respiratory: Respiratory: Denies chest congestion, Denies cough, Reports dyspnea and Reports wheezing Gastrointestinal: Gastrointestinal: Reports no additional gastrointestinal complaints Musculoskeletal: Musculoskeletal: Reports no additional musculoskeletal complaints PMFSH Past Medical History Medical History MDD (major depressive disorder), recurrent episode, moderate Mild intermittent asthma without complication Family History Family History Mother Patient's mother is in good health Social History Social History Smoking status: Never smoker Alcohol intake: never Exam Narrative: GENERAL: Well-appearing, well-nourished, and in no acute distress. HEAD: Normocephalic, atraumatic. ENT: Mucous membranes moist. NECK: Supple. CHEST: Diminished lung sounds bilaterally with expiratory wheezing and increased respiratory rate. HEART: Regular rate and rhythm. Normal peripheral pulses. ABDOMEN: Soft, nontender, nondistended. EXTREMITIES: Normal range of motion. No edema. NEURO: Alert and oriented x3. PSYCH: Normal mood and affect. Course Course Emergency Course: Breathing improved after hour long nebulizer treatment. Discharge home with steroids and albuterol refill. Vital Signs Vital signs: Vital Signs Temperature 97.7 F 02/10/24 15:35 Pulse Rate 100 02/10/24 15:35 Respiratory Rate 18 02/10/24 15:35 Blood Pressure 141/94 H 02/10/24 15:35 Pulse Oximetry 99 02/10/24 15:35 Temperature 97.7 F 02/10/24 15:35 Pulse Rate 87 02/10/24 17:29 Respiratory Rate 14 02/10/24 17:29 Blood Pressure 125/70 02/10/24 17:15 Pulse Oximetry 100 02/10/24 17:15 Discharge Plan Discharge Clinical Impression: Asthma with acute exacerbation Patient Disposition: Home, Self-Care Condition: Stable Instructions: Asthma (ED) Additional Instructions: Return ER if you have worsening shortness of breath, you lose consciousness, you have chest pain, or you have additional concerns. Prescriptions: New prednisone 50 mg t
[2024-02-10 17:15] VITALS: BP 125/70; PULSE 88; RESP 16; O2SAT 100
[2024-02-10 17:29] VITALS: PULSE 87; RESP 14
== END 2024-02-10 18:05 | disposition home or self-care (01) ==
PROVIDERS: Emergency Provider Emergency Medicine; PCP Internal Medicine Gastroenterology
DX: J45.21 Mild intermittent asthma with (acute) exacerbation (principal); F32.9 Major depressive disorder, single episode, unspecified
CPT/HCPCS: 94640; 96374; 99284; J2919

== ENCOUNTER 2024-09-27 19:22 | Emergency (ER) | payer OTHER, SELFPAY ==
[2024-09-27 19:40] VITALS: BP 129/79; PULSE 64; RESP 18; TEMP 36.6; O2SAT 98
[2024-09-27 19:43] LABS: EDUAAPPEAR Clear; EDUABILI Negative (Negative); EDUABLOOD Negative (Negative); EDUACOLOR1 Yellow; EDUAGLUCOSE Negative (Negative); EDUAKETONE Negative (Negative); EDUALEUKO 1+ (Negative); EDUANITRATE Negative (Negative); EDUAPROTEIN Negative (Negative); EDUAUROBILI 0.2
--- NOTE | 2024-09-27 19:48 | ED.FEMALEGU ---
HPI - Female Genitourinary General Chief complaint: Urogenital-Female Stated complaint: UTI Time Seen by Provider: 09/27/24 19:38 Source: patient and RN notes reviewed Mode of arrival: ambulatory Limitations: no limitations History of Present Illness HPI Narrative: Patient presents today complaining of a 3 day history of urinary frequency, external itching and irritation, dysuria. Denies hematuria, abdominal pain, back pain, vaginal discharge. No [id number] treatment prior to arrival. Related Data Home Medications Medication Instructions Recorded Confirmed baclofen 10 mg tablet 10 mg PO DAILY 09/14/22 09/27/24 cholecalciferol (vitamin D3) 50 50 mcg PO DAILY 09/14/22 09/27/24 mcg (2,000 unit) capsule ezetimibe 10 mg tablet 10 mg PO DAILY 09/14/22 09/27/24 fluoxetine 20 mg capsule 20 mg PO DAILY 09/14/22 09/27/24 gabapentin 600 mg tablet 600 mg PO DAILY 09/14/22 09/27/24 norethindrone 1 mg-ethinyl 1 tablet PO DAILY 09/14/22 09/27/24 estradiol 20 mcg (24)-iron 75 mg (4) tablet (Blisovi 24 Fe) omeprazole 20 mg capsule,delayed 20 mg PO DAILY 09/14/22 09/27/24 release trazodone 50 mg tablet 50 mg PO DAILY 09/14/22 09/27/24 buspirone 7.5 mg tablet 7.5 mg PO DAILY 06/17/23 09/27/24 cetirizine 10 mg tablet 10 mg PO DAILY 06/17/23 09/27/24 Allergies Allergy/AdvReac Type Severity Reaction Status Date / Time No Known Allergies Allergy Verified 09/27/24 19:25 Review of Systems Review of Systems: CONSTITUTIONAL: Denies body aches, fever, chills, or sweats. EYES: Denies visual changes, redness, or discharge. ENT: Denies rhinorrhea, congestion, sore throat, or otalgia. CARDIOVASCULAR: Denies chest pain, palpitations, or edema. RESPIRATORY: Denies cough or dyspnea. GASTROINTESTINAL: Denies abdominal pain, nausea, vomiting, or diarrhea. GENITOURINARY: + vulvar itching and irritation, dysuria, frequency. SKIN: Denies rash, itching, or wounds. MUSCULOSKELETAL: Denies back pain, joint pain, or myalgia. NEUROLOGIC: Denies headache, numbness, tingling, or weakness. PSYCH: Denies depression or anxiety. [facility] Past Medical History Medical History MDD (major depressive disorder), recurrent episode, moderate Mild intermittent asthma without complication Family History Family History Mother Patient's mother is in good health Social History Social History Smoking status: Never smoker Alcohol intake: never Comments At time of signature, I have reviewed and agree with nursing past medical, surgical, social and family history unless otherwise noted. Please see nursing chart for further information. There is no relevant family history pertinent to the presenting complaint Exam Narrative: GENERAL: Well-appearing, well-nourished, and in no acute distress. HEAD: Normocephalic, atraumatic. EYES: EOMI. No redness or drainage. Conjunctivae normal. ENT: Mucous membranes pink and moist. NECK: Normal AROM. CHEST: No respiratory distress. : Patient declined pelvic or vulvar examination. EXTREMITIES: Normal range of motion. No edema. SKIN: Warm, dry, no rash. Capillary refill normal. Normal skin turgor. NEURO: No focal deficits. Alert and oriented x3. Gait steady. PSYCH: Normal affect. No signs of depression or anxiety. Course Course Level of Care: Express Care Visit Vital Signs Vital signs: Vital Signs Temperature 97.8 F 09/27/24 19:40 Pulse Rate 64 09/27/24 19:40 Respiratory Rate 18 09/27/24 19:40 Blood Pressure 129/79 09/27/24 19:40 Pulse Oximetry 98 09/27/24 19:40 Oxygen Delivery Room Air 09/27/24 19:40 Temperature 97.8 F 09/27/24 19:40 Pulse Rate 64 09/27/24 19:40 Respiratory Rate 18 09/27/24 19:40 Blood Pressure 129/79 09/27/24 19:40 Pulse Oximetry 98 09/27/24 19:40 Oxygen Delivery Room Air 09/27/24 19:40 Reviewed MDM - Female Genitourinary MDM Narrative Medical decision making narrative: Based on patient's external symptoms, as well as urinalysis results, symptoms are likely due to a vulvovaginitis. Patient declined exam today and would like to follow-up with her OBGYN for further evaluation. Recommend topical clotrimazole or Monistat for symptoms. Urine culture pending. Anticipatory guidance given. Differential Diagnosis Differential diagnosis: Likely urinary tract infection, vaginitis, cystitis and other (Vaginal yeast infection) Lab Data Attestation: I reviewed the patient's lab results. Labs: Lab Results 09/27/24 Range/Units 19:30 POC Urine Color Yellow POC Urine Clarity Clear POC Urine pH 7.0 POC Ur Specif [place] 1.020 POC Urine Protein Negative (Negative) POC Ur Glucose (UA) Negative (Negative) POC Urine Ketones Negative (Negative) POC Urine Blood Negative (Negative) POC Urine Nitrite Negative (Negative) POC Urine Bilirubin Negative (Negative) POC Urine Urobilinogen 0.2 POC U Leukocyte Esteras 1+ (Negative) Critical Care Time Critical Care Time Critical Care Time: No Discharge Plan Discharge Clinical Impression: Vulvovaginal itching Patient Disposition: Home, Self-Care Condition: Stable Additional Instructions: Your symptoms and UA results are not consistent with UTI at this time. You will be notified by telephone in a few days if your urine culture is positive for infection. You can try OTC cream such as Clotrimazole for external irritation and itching. Make an appointment with your [facility] for follow up. Your blood pressure was elevated above 120/80 today at Urgent Care. This puts you above the threshold for follow up. Please schedule a followup visit with your personal physician as soon as possible, for further evaluation and treatment. Even blood pressure exceeding 120/80 may indicate pre-hypertension. Prescriptions: No Action (DME) Aerochamber MV Spacer See Rx Instructions .Route Qty: 1 0RF Rx Instructions: As directed albuterol sulfate 90 mcg/actuation HFA aerosol inhaler 2 puff inhalation QID PRN (Reason: shortness of breath or wheezing) Qty: 6.7 0RF gabapentin 600 mg tablet 600 mg PO DAILY trazodone 50 mg tablet 50 mg PO DAILY baclofen 10 mg tablet 10 mg PO DAILY omeprazole 20 mg capsule,delayed release(DR/EC) 20 mg PO DAILY fluoxetine 20 mg capsule 20 mg PO DAILY ezetimibe 10 mg tablet 10 mg PO DAILY Blisovi 24 Fe 1 mg-20 mcg (24)/75 mg (4) tablet 1 tablet PO DAILY cholecalciferol (vitamin D3) 50 mcg (2,000 unit) capsule 50 mcg PO DAILY cetirizine 10 mg tablet 10 mg PO DAILY buspirone 7.5 mg tablet 7.5 mg PO DAILY albuterol sulfate 90 mcg/actuation aero powdr breath act w/sensor 2 inh inhalation QID Qty: 1 0RF hydrocodone-acetaminophen 10-325 mg tablet 1 tablet PO Q8H PRN (Reason: pain (scale score 7-10)) Qty: 90 0RF Rx Instructions: To last 30 days, due 10/14/2021 Follow-up/Referrals: Ashok,Norm Smith MD [Primary Care Provider] - Time of Disposition: 19:47
== END 2024-09-27 19:55 | disposition home or self-care (01) ==
PROVIDERS: Emergency Provider Nurse Practitioner; PCP Internal Medicine Gastroenterology
DX: N89.8 Other specified noninflammatory disorders of vagina (principal); F33.9 Major depressive disorder, recurrent, unspecified; J45.909 Unspecified asthma, uncomplicated
CPT/HCPCS: 81003; 87086; 99213; G0463

== ENCOUNTER 2024-11-04 17:34 | Emergency (ER) | payer OTHER, SELFPAY ==
--- NOTE | 2024-11-04 17:36 | ED.URI ---
HPI - URI/Sore Throat General Stated Complaint: covid exposure/ flu symptoms Time Seen by Provider: 11/04/24 17:35 Source: patient Mode of arrival: ambulatory Limitations: no limitations History of Present Illness HPI Narrative: Doyle a 49-year-old female patient presenting to the clinic today with complaints of flu-like symptoms x3 days. She reports she is having runny nose, headache, sore throat, cough, body aches, chills, and left ear pain. Denies any known fever. Has had COVID exposure. MD elicited complaint: sore throat and nasal congestion Related Data Home Medications ?Medication ?Instructions ?Recorded ?Confirmed ?Last Taken ?Type baclofen 10 mg tablet 10 mg PO DAILY 09/14/22 09/27/24 Unknown History cholecalciferol (vitamin D3) 50 50 mcg PO DAILY 09/14/22 09/27/24 Unknown History mcg (2,000 unit) capsule ezetimibe 10 mg tablet 10 mg PO DAILY 09/14/22 09/27/24 Unknown History fluoxetine 20 mg capsule 20 mg PO DAILY 09/14/22 09/27/24 Unknown History gabapentin 600 mg tablet 600 mg PO DAILY 09/14/22 09/27/24 Unknown History norethindrone 1 mg-ethinyl 1 tablet PO DAILY 09/14/22 09/27/24 Unknown History estradiol 20 mcg (24)-iron 75 mg (4) tablet (Blisovi 24 Fe) omeprazole 20 mg capsule,delayed 20 mg PO DAILY 09/14/22 09/27/24 Unknown History release trazodone 50 mg tablet 50 mg PO DAILY 09/14/22 09/27/24 Unknown History buspirone 7.5 mg tablet 7.5 mg PO DAILY 06/17/23 09/27/24 Unknown History cetirizine 10 mg tablet 10 mg PO DAILY 06/17/23 09/27/24 Unknown History Allergies Allergy/AdvReac Type Severity Reaction Status Date / Time No Known Allergies Allergy Verified 11/04/24 17:41 Review of Systems Review of Systems: Pertinent positives per HPI. Patient denies any fever, rash, visual changes, dizziness,shortness of breath, chest pain, palpitations, nausea, vomiting, diarrhea, constipation, abdominal pain, or any urinary issues. [facility] Past Medical History Medical History Mild intermittent asthma without complication MDD (major depressive disorder), recurrent episode, moderate Family History Family History Mother Patient's mother is in good health Social History Social History Smoking status: Never smoker Alcohol intake: never Comments At the time of my signature, I reviewed and agree with the nursing past medical, surgical, social, and family history. There is no relevant family history pertinent to the patient complaint. Exam Narrative: General: Well-developed, well nourished, in no apparent distress Head: Normocephalic, atraumatic Eyes: Pupils equally round and reactive to light bilaterally, EOM intact, sclera and conjunctive clear, no discharge, lids normal Ears: TMs intact and congested, ear canals clear, no drainage, grossly hearing normal. Nose: Nares patent, clear nasal discharge, no inflammation, no sinus tenderness. Mouth: Oral pharynx without lesions or masses, good dentition, MMM. Postnasal drip Neck: Supple, trachea midline, no enlargement of anterior or posterior cervical nodes, no thyroid masses or goiter palpable. Cardio: Regular rate and rhythm, s1 and s2 normal, no murmur appreciated. Resp: Clear to auscultation bilaterally, no rhonchi, rales, wheezing or rubs Course Course Emergency Course: Portions of this record may have been created with voice recognition software. Level of Care: Express Care Visit Vital Signs Vital signs: Vital signs reviewed MDM - URI/Sore Throat MDM Narrative Medical decision making narrative: At the time of visit patient is resting comfortably on the exam table. Patient appears to be nontoxic. Labs: COVID and influenza testing was performed. COVID testing was positive. Influenza testing was negative. Plan: Patient has COVID-19. Supportive measures were discussed with the patient and they voiced understanding discharge instructions and agrees to treatment plan. Return precautions reviewed Differential Diagnosis Differential diagnosis: Likely upper respiratory infection, otitis media, sinusitis, viral infection, bronchitis, influenza, pharyngitis and other (COVID) Discharge Plan Discharge Clinical Impression: COVID-19 Patient Disposition: Home, Self-Care Condition: Stable Instructions: Antibiotic Form, How to Recover from COVID-19 at Home (ED) Additional Instructions: COVID testing was positive in the clinic today. Influenza testing was negative. Increase fluids and stay well hydrated Tylenol/motrin for pain/fever Flonase and OTC antihistamines as directed Vicks vapor rub to open sinuses Sinus rinses for congestion Cepacol spray, cough drops, throat lozenges, warm tea with honey/lemon, gargle salt water to soothe throat BRAT diet for diarrhea Clear liquids x 24 hours then advance as tolerated for nausea/vomiting Go to the ED if you develop a worsening in your condition- high fever not controlled by Tylenol or Motrin, dehydration, weakness, lethargy, shortness of breath, or chest pain. Follow up with your PCP in 3-5 days if symptoms persist. Patient Language: [place] Prescriptions: No Action (DME) Aerochamber MV Spacer See Rx Instructions .Route Qty: 1 0RF Rx Instructions: As directed albuterol sulfate 90 mcg/actuation HFA aerosol inhaler 2 puff inhalation QID PRN (Reason: shortness of breath or wheezing) Qty: 6.7 0RF gabapentin 600 mg tablet 600 mg PO DAILY trazodone 50 mg tablet 50 mg PO DAILY baclofen 10 mg tablet 10 mg PO DAILY omeprazole 20 mg capsule,delayed release(DR/EC) 20 mg PO DAILY fluoxetine 20 mg capsule 20 mg PO DAILY ezetimibe 10 mg tablet 10 mg PO DAILY Blisovi 24 Fe 1 mg-20 mcg (24)/75 mg (4) tablet 1 tablet PO DAILY cholecalciferol (vitamin D3) 50 mcg (2,000 unit) capsule 50 mcg PO DAILY cetirizine 10 mg tablet 10 mg PO DAILY buspirone 7.5 mg tablet 7.5 mg PO DAILY albuterol sulfate 90 mcg/actuation aero powdr breath act w/sensor 2 inh inhalation QID Qty: 1 0RF hydrocodone-acetaminophen 10-325 mg tablet 1 tablet PO Q8H PRN (Reason: pain (scale score 7-10)) Qty: 90 0RF Rx Instructions: To last 30 days, due 10/14/2021 Follow-up/Referrals: Ashok,Norm Smith MD [Primary Care Provider] - Stand Alone Forms: Work/School Release IP Time of Disposition: 17:49 Quality NIHSS Nursing Documentation ED NIHSS nursing documentation: reviewed/agree
[2024-11-04 17:42] VITALS: BP 152/79; PULSE 89; RESP 16; TEMP 37.7; O2SAT 99
[2024-11-04 17:50] LABS: EDCOVIDSCREEN Positive (Negative); EDINFLUASCREEN Negative (Negative); EDINFLUBSCREEN Negative (Negative)
== END 2024-11-04 17:55 | disposition home or self-care (01) ==
PROVIDERS: Emergency Provider Nurse Practitioner Family; PCP Internal Medicine Gastroenterology
DX: U07.1 COVID-19 (principal); J45.909 Unspecified asthma, uncomplicated; F33.9 Major depressive disorder, recurrent, unspecified
CPT/HCPCS: 87426; 87804; 99212; G0463

== ENCOUNTER 2024-12-19 19:28 | Emergency (ER) | payer OTHER, SELFPAY ==
--- NOTE | 2024-12-19 19:29 | ED.EAR ---
HPI - Ear Problem General Chief complaint: Ear Stated complaint: Ear Irritation Time Seen by Provider: 12/19/24 19:28 Source: patient Mode of arrival: ambulatory Limitations: no limitations History of Present Illness HPI Narrative: Patient is a 49-year-old female presents with left ear pain and left lower dental pain for 3 days. Patient states she has a bad to has not been able to get into the dentist. Denies any fever, chills, nausea, vomiting, diarrhea, sore throat, cough. Patient has not taken anything for symptoms. Does report tenderness from lower jaw MD Complaint: ear pain Related Data Home Medications ?Medication ?Instructions ?Recorded ?Confirmed ?Last Taken ?Type baclofen 10 mg tablet 10 mg PO DAILY 09/14/22 11/04/24 Unknown History cholecalciferol (vitamin D3) 50 50 mcg PO DAILY 09/14/22 11/04/24 Unknown History mcg (2,000 unit) capsule ezetimibe 10 mg tablet 10 mg PO DAILY 09/14/22 11/04/24 Unknown History fluoxetine 20 mg capsule 20 mg PO DAILY 09/14/22 11/04/24 Unknown History gabapentin 600 mg tablet 600 mg PO DAILY 09/14/22 11/04/24 Unknown History norethindrone 1 mg-ethinyl 1 tablet PO DAILY 09/14/22 11/04/24 Unknown History estradiol 20 mcg (24)-iron 75 mg (4) tablet (Blisovi 24 Fe) omeprazole 20 mg capsule,delayed 20 mg PO DAILY 09/14/22 09/27/24 Unknown History release trazodone 50 mg tablet 50 mg PO DAILY 09/14/22 11/04/24 Unknown History buspirone 7.5 mg tablet 7.5 mg PO DAILY 06/17/23 11/04/24 Unknown History cetirizine 10 mg tablet 10 mg PO DAILY 06/17/23 11/04/24 Unknown History [id number]-[id number]-rvrrlnlr tablet 12/19/24 Unknown History 50 mg-325 mg-40 mg tablet hydrocodone 10 mg-acetaminophen tablet 12/19/24 Unknown History 300 mg tablet pantoprazole 40 mg tablet,delayed mg PO 12/19/24 Unknown History release Allergies Allergy/AdvReac Type Severity Reaction Status Date / Time No Known Allergies Allergy Verified 12/19/24 19:30 Review of Systems Review of Systems: All systems reviewed & are unremarkable except as noted in HPI and below Constitutional: Constitutional: Denies body ache(s), Denies chills, Denies fever(s), Denies headache(s) and Denies malaise Eyes: Eyes: Denies blurry vision, Denies eye discharge and Denies irritation ENT: Reports otalgia, Reports facial pain, Denies headache(s), Denies nasal congestion, Denies nasal discharge and Denies sore throat Cardiovascular: Cardiovascular: Denies chest pain, Denies edema, Denies palpitations and Denies dyspnea on exertion Respiratory: Respiratory: Denies cough and Denies dyspnea on exertion Gastrointestinal: Gastrointestinal: Denies abdominal pain, Denies diarrhea, Denies nausea and Denies vomiting Musculoskeletal: Musculoskeletal: Denies back pain, Denies arthralgias and Denies muscle weakness Integumentary/Breasts: Skin/Breast: Denies pruritus and Denies rash Neurologic: Denies headache(s) Psychiatric: Psychiatric: Reports no additional psychiatric complaints Endocrine: Endocrine: Denies palpitations PMFSH Past Medical History Medical History Mild intermittent asthma without complication MDD (major depressive disorder), recurrent episode, moderate Family History Family History Mother Patient's mother is in good health Social History Social History Smoking status: Never smoker Alcohol intake: never Comments At time of signature, agree with nursing past medical, surgical, social and family history. There is no relevant family history pertinent to the presenting complaint? Exam Const: General: cooperative, healthy appearing, no acute distress and well nourished Nutritional Appearance: well nourished Orientation/consciousness: patient oriented x3 Limitations: no limitations HENMT: Head: normal to inspection, normocephalic and atraumatic Ears: hearing grossly normal bilaterally, TM's normal bilaterally, EAC's normal and no periauricular adenopathy Face/Nose/Sinus: Normal external nose present, Normal nares present, Normal nasal mucous membranes and turbinates present, No nasal discharge present, normal facial exam and sinuses nontender Face and sinus: normal facial exam and sinuses nontender Mouth: Yes Normal oral and palatal mucosa present, Yes lip normal, Yes tongue normal and Yes moist mucous membranes Teeth and gingiva: abnormal tooth and associated gingiva lower left second molar tender and with associated gingival edema, caries, fair dentition and multiple restorations Throat: posterior oropharynx normal, tonsils normal and uvula midline Eyes: General: appearance normal, both eyes and all related structures Alignment and Position: alignment normal and position normal Eyelids: eyelids normal Pupils: Equal, round and reactive pupils present EOM: EOMs intact bilaterally Neck: Neck: normal visual inspection, full ROM, no lymphadenopathy and supple Chest: Chest palpation & inspection: normal inspection of the chest Resp: Effort & Inspection: normal respiratory effort and able to speak in complete sentences Auscultation: clear to auscultation bilaterally, no crackles, no rales, no rhonchi and no wheezes Cardio: Rate: regular rate Rhythm: regular rhythm Heart sounds: S1 normal heart sound present and S2 normal heart sound present Skin: General skin exam: normal color and no rashes or lesions noted Neuro: General: patient oriented x3 and moves all extremities Cranial nerves: Yes Equal, round and reactive pupils present Cognition (Neuro): normal cognition Speech: normal speech Gait exam (Neuro): Normal gait present Extrem: General: normal to inspection and full ROM Psych: Appearance: grossly normal and well kempt Mental Status: mental status grossly normal Speech and movement: Normal speech and movement present Course Course Emergency Course: Patient is aware of diagnosis, understands and agrees to treatment plan.? Anticipatory guidance given.? Patient agrees to follow-up as directed and is aware of reasons to seek care at the emergency department.? Portions of this record may have been created with voice recognition software? Level of Care: Express Care Visit Vital Signs Vital signs: Reviewed Medical Decision Making MDM Narrative Medical decision making narrative: Pt well hydrated appearing, in no respiratory distress, hemodynamically stable. Recommend supportive care. The patient is stable at time of discharge the clinical impression was discussed and the patient was given the opportunity to ask questions, which were addressed as completely as possible given the information available at present. Anticipatory guidance and return to care precautions were discussed and the importance of primary care follow-up was stressed and encouraged. The patient voiced understanding of the plan, indications to return, and the need for follow-up. Exam findings show no acute concerns or changes Patient is appropriate for outpatient treatment and follow-up. Differential diagnosis considered: Dental abscess, Hines virus, strep pharyngitis, allergic rhinitis, upper respiratory tract infection, sinusitis, rhinosinusitis, nasopharyngitis. viral pharyngitis, otitis media, otitis externa, otitis effusion, foreign body, cerumen impaction, viral syndrome, and influenza.? Medical Records Medical records reviewed: Yes I reviewed the external patient's medical records. Discharge Plan Discharge Clinical Impression: Dental abscess Patient Disposition: Home, Self-Care Condition: Stable Instructions: Dental Abscess (ED) Additional Instructions: Take antibiotic until it's gone. Brushing teeth at least twice daily with gentle flossing. Avoid temperature extremes---when you eat. Salt gargle to rinse your mouth after every meal You may apply ice to the face to reduce pain/swelling. For pain, you may take: Tylenol 650-1000mg by mouth every 4-6 hours. Do not exceed 4000mg in 24 hours. Advil (Ibuprofen) 600 mg by mouth every 6 hours. Do not exceed 2400mg in 24 hours. Also, recommend regular dental check up one-two times a year to prevent tooth decay and other periodontal disease. Follow-up with the dentist as soon as possible--see the list provided Patient Language: Slovak Prescriptions: New amoxicillin-pot clavulanate 875-125 mg tablet 1 tablet PO Q12H 10 Days Qty: 20 0RF No Action (DME) Aerochamber MV Spacer See Rx Instructions .Route Qty: 1 0RF Rx Instructions: As directed albuterol sulfate 90 mcg/actuation HFA aerosol inhaler 2 puff inhalation QID PRN (Reason: shortness of breath or wheezing) Qty: 6.7 0RF gabapentin 600 mg tablet 600 mg PO DAILY trazodone 50 mg tablet 50 mg PO DAILY baclofen 10 mg tablet 10 mg PO DAILY omeprazole 20 mg capsule,delayed release(DR/EC) 20 mg PO DAILY fluoxetine 20 mg capsule 20 mg PO DAILY ezetimibe 10 mg tablet 10 mg PO DAILY Blisovi 24 Fe 1 mg-20 mcg (24)/75 mg (4) tablet 1 tablet PO DAILY cholecalciferol (vitamin D3) 50 mcg (2,000 unit) capsule 50 mcg PO DAILY cetirizine 10 mg tablet 10 mg PO DAILY buspirone 7.5 mg tablet 7.5 mg PO DAILY rwhykumzih-izbzivudijsfz-prec 50-325-40 mg tablet pantoprazole 40 mg tablet,delayed release (DR/EC) PO hydrocodone-acetaminophen 10-300 mg tablet albuterol sulfate 90 mcg/actuation aero powdr breath act w/sensor 2 inh inhalation QID Qty: 1 0RF Follow-up/Referrals: Ashok,Norm Smith MD [Primary Care Provider] - 3 Days Time of Disposition: 19:39
[2024-12-19 19:35] VITALS: BP 120/72; PULSE 62; RESP 16; TEMP 37; O2SAT 99
== END 2024-12-19 19:46 | disposition home or self-care (01) ==
PROVIDERS: Emergency Provider Nurse Practitioner Family; PCP Internal Medicine Gastroenterology
DX: K04.7 Periapical abscess without sinus (principal); Z79.891 Long term (current) use of opiate analgesic
CPT/HCPCS: 99213; G0463